=== PATIENT | female | born 1985 | race Caucasian/White ===

== ENCOUNTER 2017-06-20 08:00 | Outpatient (CLI) | payer OTHER ==
[2017-06-20 13:16] LABS: BASOPHILS % (AUTO) 0.4 %; EOSINOPHILS # (AUTO) 0.3 10^3/uL (0.0-0.7); EOSINOPHILS % (AUTO) 5.7 %; HCT - HEMATOCRIT 42.6 % (37.0-47.0); HGB - HEMOGLOBIN 14.6 g/dL (12.0-16.0); LYMPHOCYTES # (AUTO) 2.1 10^3/uL (1.5-3.5); LYMPHOCYTES % (AUTO) 34.9 %; MEAN CORPUSCULAR HEMOGLOBIN 31.9 pg (27.0-31.0); MEAN CORPUSCULAR HGB CONC 34.3 g/dL (32.0-36.0); MEAN PLATELET VOLUME 8.2 fL (7.9-10.8); MONOCYTES # (AUTO) 0.4 10^3/uL (0.0-1.0); MONOCYTES % (AUTO) 7.5 %; NEUTROPHILS % (AUTO) 51.5 %; RED BLOOD COUNT 4.58 10^6/uL (4.20-5.40); UNCORRECTED WHITE BLOOD COUNT 5.9 x10^3/uL; WHITE BLOOD COUNT 5.9 x10^3/uL (4.8-10.8)
[2017-06-20 13:41] LABS: THYROID STIMULATING HORMONE 2.18 uIU/mL (0.34-5.60)
[2017-06-20 13:43] LABS: ALBUMIN/GLOBULIN RATIO 1.7 (1.0-2.2); BILIRUBIN,TOTAL 0.5 mg/dL (0.2-1.0); BUN - BLOOD UREA NITROGEN 12 mg/dL (6-20); CALCIUM 9.1 mg/dL (8.5-10.3); CARBON DIOXIDE - CO2 24 mmol/L (21-32); CHLORIDE 107 mmol/L (101-111); CHOL/HDL RATIO 3.2 (<4.4); CHOLESTEROL 172 mg/dL; CREATININE 0.7 mg/dL (0.4-1.0); GFR - MDRD 98 (>89); GLUCOSE 98 mg/dL (70-100); HDL CHOLESTEROL 54 mg/dL; LDL/HDL RATIO 1.9 (<4.4); POTASSIUM 4.3 mmol/L (3.5-5.0); SODIUM 136 mmol/L (135-145); TOTAL PROTEIN 6.8 g/dL (6.7-8.2); TRIGLYCERIDES 88 mg/dL; VLDL CHOLESTEROL 18 mg/dL
[2017-06-20 14:14] LABS: HEMOGLOBIN A1C 0.49 g/dL
== END 2017-06-20 23:59 ==
LOC: LAB.WCP 08:00
PROVIDERS: ATTEND Family Medicine
DX: Z00.00 Encounter for general adult medical examination without abnormal findings (principal)
CPT/HCPCS: 36415; 80053; 80061; 83036; 84439; 84443; 84481; 85025

== ENCOUNTER 2018-02-26 11:27 | Outpatient (CLI) | payer BC, OTHER ==
[2018-02-27 15:12] LABS: HIV AG/AB 4TH GEN NON-REACTIVE (NON-REACTIVE)
== END 2018-02-26 11:28 ==
LOC: LAB.WCP 11:27
PROVIDERS: ATTEND Family Medicine
DX: Z11.3 Encounter for screening for infections with a predominantly sexual mode of transmission (principal)
CPT/HCPCS: 36415; 81599; 86695; 86696; 87389

== ENCOUNTER 2018-03-09 12:00 | Emergency (ER) | payer OTHER, BC ==
--- NOTE | 2018-03-09 13:00 | ED Physician Documentation ---
PD HPI UPPER EXT INJURY - Stated complaint Stated Complaint: HAND LAC - Chief complaint Chief Complaint: Laceration - History obtained from History obtained from: Patient, Family - History of Present Illness Location: Right, Hand Type of injury: Laceration Where injury occurred: Work Timing - onset: Today Timing - duration: Minutes Timing - details: Abrupt onset, Still present Improved by: Rest, Immobilization Worsened by: Moving, Palpating Associated symptoms: No: Weakness, Numbness, Tingling Contributing factors: No: Anticoagulated Similar symptoms before: Has not had sx before Recently seen: Not recently seen - Additonal information Additional information: 32-year-old female was at work today doing the dishes when she lacerated the webspace between the thumb and index finger on the right hand. Review of Systems Constitutional: denies: Fever Respiratory: denies: Cough GI: denies: Vomiting Skin: reports: Laceration (s) Musculoskeletal: reports: Extremity pain Neurologic: denies: Generalized weakness, Focal weakness, Numbness PD PAST MEDICAL HISTORY - Present Medications Home Medications: Ambulatory Orders Medication Instructions Recorded Confirmed Levothyroxine [Synthroid] 1 tab PO DAILY 03/09/18 03/09/18 Varenicline Tartrate [Chantix] 1 tab PO BID 03/09/18 03/09/18 - Allergies Allergies/Adverse Reactions: Allergies Allergy/AdvReac Type Severity Reaction Status Date / Time No Known Drug Allergies Allergy Verified 03/09/18 12:04 PD ED PE NORMAL - Vitals Vital signs reviewed: Yes (normal ) - General General: Alert and oriented X 3, No acute distress, Well developed/nourished - HEENT HEENT: Atraumatic, PERRL - Respiratory Respiratory: No respiratory distress - Derm Derm: Normal color, Warm and dry, No rash - Extremities Extremities: No deformity, No edema, Other (There is a 1.5cm laceration to the right hand over the web space between thumb and index. This does not involve deeper structures and distal n/v is intact. ) - Neuro Neuro: Alert and oriented X 3, shells inspector 2-12 intact, No motor deficit, No sensory deficit, Normal speech Eye Opening: Spontaneous Motor: Obeys Commands Verbal: Oriented GCS Score: 15 - Psych Psych: Normal mood, Normal affect Results - Vitals Vitals: Vital Signs - 24 hr 03/09/18 12:02 Temperature 36.5 C Heart Rate 76 Respiratory 16 Rate Blood Pressure 113/79 O2 Saturation 98 Oxygen O2 Source Room air Procedures - Laceration (location) right hand Length in cm: 1.5 Wound type: Linear, Clean Neurovascular status: Sensory intact, Motor intact, Vascular intact Anesthesia: Lidocaine 1%, With bicarb Wound Preparation: Hibiclens, Irrigated copiously NS, Wound explored, To the base Skin layer closure: Nylon, Interrupted, Size #-0 - enter number (5-0), Sutures - enter # (3) Other: Patient tolerated well, No complications, Neurovascular intact, Dressing applied, Tetanus booster given Complexity: Simple PD MEDICAL DECISION MAKING - ED course Complexity details: considered differential, d/w patient ED course: 32-year-old female with a simple laceration to the right hand as wound cleansed and sutured. She is not up-to-date on her tetanus and a tetanus booster is given as well. - Sepsis Event Vital Signs: Vital Signs - 24 hr 03/09/18 12:02 Temperature 36.5 C Heart Rate 76 Respiratory 16 Rate Blood Pressure 113/79 O2 Saturation 98 Oxygen O2 Source Room air Departure - Departure Disposition: 01 Home, Self Care Clinical Impression: Laceration of right hand Qualifiers: Encounter type: initial encounter Foreign body presence: without foreign body Qualified Code(s): S61.411A - Laceration without foreign body of right hand, initial encounter Condition: Stable Instructions: ED Laceration Hand Follow-Up: Liv Arroyo MD [Primary Care Provider] - Comments: Sutures will need to be removed in 7-10 days.
[2018-03-09] MEDS ORDERED: BUFFERED LIDOCAINE 10 ML SYRINGE SUBQ STA (13:02)
[2018-03-09] MEDS ORDERED: BUFFERED LIDOCAINE 10 ML SYRINGE ONE (13:04)
[2018-03-09] MEDS ORDERED: TETANUS/DIPHTHERIA/PERTUSSIS 0.5 ML SYRINGE IM ONE (13:18)
[2018-03-09 13:57] VITALS: BP 121/97
== END 2018-03-09 13:56 | disposition home or self-care (01) ==
LOC: ED 12:00
DX: S61.411A Laceration without foreign body of right hand, initial encounter (principal); W45.8XXA Other foreign body or object entering through skin, initial encounter; Y93.G1 Activity, food preparation and clean up; Y99.0 Civilian activity done for income or pay; Z23 Encounter for immunization
CPT/HCPCS: 1040M; 12001; 90471; 90715; 99282; 99283

== ENCOUNTER 2018-04-06 08:00 | Outpatient (CLI) | payer BC | END 2018-04-06 08:01 | disposition home or self-care (01) | LOC: LAB.WCP 08:00 | PROVIDERS: ATTEND Registered Nurse | DX: N97.9 Female infertility, unspecified (principal) | CPT/HCPCS: 36415; 84144; 84443 ==

== ENCOUNTER 2018-04-06 08:00 | Outpatient (CLI) | payer BC | END 2018-04-06 08:01 | disposition home or self-care (01) | LOC: MERGE 08:00 → LAB.R 08:00 | PROVIDERS: ATTEND Registered Nurse | DX: Z11.3 Encounter for screening for infections with a predominantly sexual mode of transmission (principal); N97.9 Female infertility, unspecified | CPT/HCPCS: 36415; 84144; 84443; 87491; 87591 ==

== ENCOUNTER 2018-05-13 12:22 | Outpatient (CLI) | payer BC ==
[2018-05-13] MEDS ORDERED: IOTHALAMATE MEGLUMINE 50 ML VIAL ONE (12:40)
[2018-05-13] MEDS ORDERED: IOTHALAMATE MEGLUMINE 50 ML VIAL IVP ONE (14:47)
--- NOTE | 2018-05-13 15:38 | XRAY Report ---
Reason: INFERTILITY Procedure Date: 05/13/2018 Accession Number: [id number] / [id number] Procedure: FL - Hysterosalpingogram CPT Code: FULL RESULT: EXAM: HYSTEROSALPINGOGRAM EXAM DATE: 05/13/2018 02:01 PM. CLINICAL HISTORY: Infertility. COMPARISONS: None. TECHNIQUE: Patient was placed in the lithotomy position. A speculum was utilized to visualize the cervix. The cervical os was cleansed with Betadine swabs and a hysterosalpingography catheter inserted without complication through the cervical canal and the balloon inflated. Under fluoroscopic observation, the endometrial canal was filled with sterile contrast. Multiple spot views were saved for review. Fluoroscopy Time: 1 minute. Number of fluoroscopy images: 7. Ultra low-dose technique was utilized. FINDINGS: Uterus: The endometrial canal is well distended with contrast and has a smooth normal contour. Tubes: The fallopian tubes fill with contrast. There is delay in filling of the left fallopian tube. Increased contrast injection under slight pressure opens the left fallopian tube and demonstrates free spillage into the peritoneum bilaterally. The outline of both fallopian tubes is normal. Other: None. IMPRESSION: Patent bilateral fallopian tubes with free spillage into the peritoneum following delayed opacification of the left fallopian tube. Unremarkable endometrial cavity. [facility]
== END 2018-05-13 12:23 | disposition home or self-care (01) ==
LOC: DI 12:22
PROVIDERS: ATTEND Registered Nurse
DX: N97.9 Female infertility, unspecified (principal)
CPT/HCPCS: 58340; 74740; Q9961